=== PATIENT | male | born 1960 | race Caucasian/White ===

== ENCOUNTER 2019-08-12 09:15 | Outpatient (CLI) | payer OTHER ==
--- NOTE | 2019-08-12 17:59 | EKG ---
Test Reason : Blood Pressure : / mmHG Vent. Rate : 061 BPM Atrial Rate : 061 BPM P-R Int : 162 ms QRS Dur : 110 ms QT Int : 408 ms P-R-T Axes : 065 008 028 degrees QTc Int : 410 ms Normal sinus rhythm Normal ECG No previous ECGs available Confirmed by Carl VERDIN ([id number]) on 08/12/2019 5:59:19 PM Referred By: ARMAND Confirmed By:Carl VERDIN
== END 2019-08-12 09:16 | disposition home or self-care (01) ==
LOC: LABBT 09:15
PROVIDERS: ATTEND Neurological Surgery
DX: Z01.818 Encounter for other preprocedural examination (principal); M54.16 Radiculopathy, lumbar region; M54.5 Low back pain
CPT/HCPCS: 93005; 93010

== ENCOUNTER 2019-08-19 07:50 | Day surgery (SDC) | payer OTHER ==
[2019-08-12 11:31] VITALS: BMI 25.7
[2019-08-19] MEDS ORDERED: EPINEPHrine 1 MG/ML AMP ONE (08:02)
[2019-08-19] MEDS ORDERED: Thrombin 5000 UNITS/5 ML VIAL ONE (08:02)
[2019-08-19] MEDS ORDERED: Bupivacaine PF 0.5% 30 ML VIAL ONE (08:02)
[2019-08-19] MEDS ORDERED: Fentanyl 100 MCG/2 ML VIAL ONE ×3 (08:47→10:46)
[2019-08-19] MEDS ORDERED: Tamsulosin HCl 0.4 MG CAP ONE (10:46)
[2019-08-19] MEDS ORDERED: Glycopyrrolate 0.2 MG/ML 5 ML SYRINGE ONE (11:12)
[2019-08-19] MEDS ORDERED: PROPOFOL 200 MG/20 ML VIAL ONE (11:12)
[2019-08-19] MEDS ORDERED: Rocuronium Bromide 10 MG/ML (10ML VIAL) ONE (11:12)
[2019-08-19] MEDS ORDERED: Dexamethasone 20 MG/5 ML VIAL ONE (11:12)
[2019-08-19] MEDS ORDERED: Ondansetron PF 4 MG/2 ML Vial ONE (11:12)
[2019-08-19] MEDS ORDERED: Lidocaine 1% PF 5 ML VIAL ONE (11:12)
--- NOTE | 2019-08-19 12:49 | OP ---
DATE OF PROCEDURE: 08/19/2019 AUDIOVISUAL EQUIPMENT OPERATOR: Daquan Arita PA-C INDICATIONS: Pain and failed dorsal column stimulator. PROCEDURE PERFORMED: Removal of dorsal column stimulator generator and leads and reoperation of right L5-S1 hemilaminectomy, medial facetectomy, and decompression. ANESTHESIA: General. DESCRIPTION OF PROCEDURE: The patient was brought into the operating room and placed under general anesthesia. He was flipped from the supine to prone position on the operating room table. Three incisions were prepped and draped in the usual sterile fashion. These, three incisions were at the location of three prior incisions. After prepping and draping and after an appropriate perioperative pause, all of the incisions were created. The dorsal column stimulator was removed first in total by removing the generator from the pocket over the right hip and the lead electrodes over the thoracic incision. We then redirected our attention to the lumbosacral junction, where the incision there was extended and dissection was performed to the right of midline in order to identify the L5 lamina on the right. There was scar tissue present from the patient's prior operation. The bone work from his prior operation, was extended superiorly as well as laterally in order to further decompress the S1 nerve root as it exited through the S1 foramen, but also within the lateral recess. All three wounds were then irrigated. Hemostasis was maintained throughout. The wound was then closed in anatomic layers and a pressure dressing was applied. There were no known procedural complications. Job ID: [id number]
[2019-08-19] MEDS ORDERED: HYDROcodone/Acetaminophen 5/325 mg Tablet ONE (13:13)
== END 2019-08-19 13:40 | disposition home or self-care (01) ==
LOC: SDC 07:50
PROVIDERS: ATTEND Neurological Surgery
PROC: 01NB0ZZ Release Lumbar Nerve, Open Approach (ICD-10-PCS; principal; 2019-08-19)
PROC: 00PU0MZ Removal of Neurostimulator Lead from Spinal Canal, Open Approach (ICD-10-PCS; principal; 2019-08-19)
PROC: 0JPT0MZ Removal of Stimulator Generator from Trunk Subcutaneous Tissue and Fascia, Open Approach (ICD-10-PCS; principal; 2019-08-19)
DX: T85.890A Other specified complication of nervous system prosthetic devices, implants and grafts, initial encounter (principal); M54.16 Radiculopathy, lumbar region; M48.07 Spinal stenosis, lumbosacral region; I10 Essential (primary) hypertension; E78.5 Hyperlipidemia, unspecified; F17.210 Nicotine dependence, cigarettes, uncomplicated; Z79.899 Other long term (current) drug therapy; Z88.2 Allergy status to sulfonamides; Z88.8 Allergy status to other drugs, medicaments and biological substances; Z91.013 Allergy to seafood
CPT/HCPCS: 76000; J0171; J0690; J1100; J2001; J2405; J2704; J3010; S0020